=== PATIENT | male | born 1965 | race Caucasian/White ===

== ENCOUNTER 2016-09-22 20:29 | Emergency (ER) | payer OTHER ==
[~2016-09-22 20:29] MED LIST: FLOMAX(MONOGRA0.4 MG PO; NEXIUM 40MG40 MG PO; PERCOCET 325 MG1 TA2 PO
[2016-09-22 20:39] VITALS: BP 134/82
[2016-09-22] MEDS ORDERED: CIALIS20 M1 PO (20:46)
--- NOTE | 2016-09-22 21:17 | ED HAND/WRIST INJURY COMPLAINT ---
History of Present Illness General Chief Complaint: Laceration Procedure Stated Complaint: LAC TO LEFT HAND Source: patient Exam Limitations: no limitations Vital Signs & Intake/Output Vital Signs & Intake/Output Vital Signs Date Time Temp Pulse Resp B/P B/P Pulse O2 O2 Flow FiO2 Mean Ox Delivery Rate 09/22 2038 98.0 92 16 134/82 99 Room Air Allergies Coded Allergies: NO KNOWN ALLERGIES (08/16/12) Reconcile Medications Tadalafil (Cialis) 20 MG TABLET 1 TAB PO AD PRN ED (Reported) Triage Note: 51 M PRESENTS WITH APPROX 2CM WELL APPROXIMATED LAC TO L PALM FROM BOXCUTTER. FELT BLADE HIT THE BONE. CLEANED WITH PEROXIDE AND STERILE WATER IN TRIAGE. PRESSURE DRESSING APPLIED. MEDICATED WITH TETANUS PER eMAR, PT NOT UTD. Triage Nurses Notes Reviewed? yes Occurred: just prior to arrival Duration: minute(s):, constant, continues in ED Timing: single episode today Injury Environment: home Severity: mild, moderate Pain/Injury Location: Left: Hand. Method of Injury: laceration No Modifying Factors: none HPI: 51-year-old male comes into emergency room for laceration to left thumb at the base of the finger. Patient cut her with a box toe cementer by accident. Some associated swelling and bleeding. No numbness tingling. Denies any injury or trauma anywhere else. Denies any other symptoms of symptoms. (BARB COLLINS) Past History Travel History Traveled to [place] past 21 day No Medical History Any Pertinent Medical History? see below for history Neurological: NONE EENT: NONE Cardiovascular: NONE Respiratory: NONE Gastrointestinal: NONE Hepatic: NONE Renal: NONE Musculoskeletal: NONE Psychiatric: NONE Endocrine: NONE Blood Disorders: NONE Tetanus Vaccine: 08/16/12 Surgical History Surgical History: non-contributory Psychosocial History What is your primary language Kyrgyz Tobacco Use: Quit >30 days ago Family History Hx Contributory? No (BARB COLLINS) Review of Systems Review of Systems Constitutional: Reports: no symptoms. EENTM: Reports: no symptoms. Respiratory: Reports: no symptoms. Cardiovascular: Reports: no symptoms. GI: Reports: no symptoms. Genitourinary: Reports: no symptoms. Musculoskeletal: Reports: see HPI. Skin: Reports: see HPI. Neurological/Psychological: Reports: no symptoms. Hematologic/Endocrine: Reports: no symptoms. Immunologic/Allergic: Reports: no symptoms. All Other Systems: Reviewed and Negative (BARB COLLINS) Physical Exam Physical Exam General Appearance: well developed/nourished, mild distress Head: atraumatic Eyes: Bilateral: normal appearance. Ears, Nose, Throat: normal ENT inspection, hearing grossly normal Neck: normal inspection Cardiovascular/Respiratory: no respiratory distress Back: normal inspection Hand Left: 1st finger, 2 cm laceration, full range of motion of thumb, sensation intact, motor intact, intact Hand Right: normal inspection Neurologic/Tendon: normal sensation, normal motor functions, normal tendon functions, responds to pain, no evidence tendon injury, no pulse deficit Skin: intact, normal color, warm/dry Lymphatic: no anterior cervical hebert (BARB COLLINS) Progress Differential Diagnosis: felon, fracture, paronychia, septic arthritis, sprain, tenosynovitis, tendon laceration, foreign body, Plan of Care: return if any signs of infection such as redness on discharge fever chills. Return if any other concerns worsening symptoms. (BARB COLLINS) Departure Departure Disposition: HOME OR SELF CARE Condition: Stable Clinical Impression Primary Impression: Laceration of left hand Referrals: ANTHONY BRISENO MD (PCP/Family) Additional Instructions: Return in 7-10 days for suture removal. Watch for signs of infection such as redness, discharge fever chills. Return if any other concerns worsening symptoms. Please go over all results of today's visit with your primary care doctor. Contact your primary care doctor to let them know you were here in the emergency room. There may be nonspecific findings which may not be related to your visit today here in the emergency room but may require further evaluation and chronic monitoring by your primary care doctor. If you had a laceration today the chance of foreign body always remains. You should follow-up with your primary care doctor for recheck in 3-5 days for a wound check. If you had an x-ray done there is a chance that a fracture could have been missed on initial read and you should follow-up with your primary care doctor for repeat x-rays if symptoms persist. If your blood pressure was elevated here in the emergency room please have rechecked by her primary care doctor within the next 48 hours by your primary care doctor. If you were prescribed a narcotic here in the emergency room or any type of controlled substances you're not allowed to drive while taking this medication or operate any type of heavy machinery. Narcotics can make you feel lightheaded dizziness nausea and can cause constipation. You may need to picker / packer a stool softener. Thank you for choosing emergency room. Please return to the emergency room immediately if you have any other concerns worsening of symptoms. Departure Forms: Customer Survey General Discharge Information (BARB COLLINS) PA/DIAZO TECHNICIAN Co-Sign Statement Statement: ED Attending supervision documentation- [] I saw and evaluated the patient. I have also reviewed all the pertinent lab results and diagnostic results. I agree with the findings and the plan of care as documented in the PA's/DIAZO TECHNICIAN's documentation. [x] I have reviewed the ED Record and agree with the PA's/DIAZO TECHNICIAN's documentation. [] Additions or exceptions (if any) to the PAs/DIAZO TECHNICIAN's note and plan are summarized below: [] (HUI SOLIS,ARELIS Lopez) Procedures Laceration/Wound Repair Progress: 2 cm laceration left hand, Betadine prep, 1% lidocaine, 3-4 mL injected, 4. 0 nylon use, 3 sutures placed, sterile technique, bacitracin and dry sterile dressing placed, performed by PA student with my supervision (BARB COLLINS) ED Attending Observation Initial Observation Note: I have seen and personally examined ARIN MALDONADO on 09/22/16 at 2116. I agree with the current emergency department documentation. The disposition (admission or discharge) is uncertain at this time, he needs a period of observation for the following reason(s): The ED Nurse caring for this patient has been personally informed as to what the patient is being observed for. (BARB COLLINS)
== END 2016-09-22 21:40 ==
LOC: ERH 20:29
DX: S61.412A Laceration without foreign body of left hand, initial encounter (principal); W45.8XXA Other foreign body or object entering through skin, initial encounter; Y92.9 Unspecified place or not applicable; Y93.9 Activity, unspecified
CPT/HCPCS: 90471